=== PATIENT | female | born 1985 ===

== ENCOUNTER 2024-01-22 08:45 | Inpatient (IN) | payer OTHER ==
[~2024-01-22] VITALS: Ht 99.1 cm; Wt 86.6 kg
[2024-01-22 10:13] LABS: HEMATOCRIT 33.5 % (36.0-45.00); HEMOGLOBIN 10.9 g/dL (12.0-15.00); MEAN CELL VOLUME 74.2 fL (80.00-100.00); MEAN CORPUSCULAR HEMOGLOBIN 24.1 pg (27.00-32.0); MEAN CORPUSCULAR HGB CONC 32.6 g/dl (32.0-36.0); PLATELET COUNT 435 K/uL (150-450); RED BLOOD COUNT 4.52 M/uL (4.00-6.00); RED CELL DISTRIBUTION WIDTH 17.5 % (11.5-14.5)
[2024-01-22 10:35] LABS: INR 0.99; PARTIAL THROMBOPLASTIN TIME 25.6 SECONDS (22.0-34.0); PROTHROMBIN TIME 10.8 SECONDS (9.0-11.5)
[2024-01-22 10:46] VITALS: BP 136/80
[2024-01-22] MEDS ORDERED: METFORMIN HCL500 M3 PO (10:48)
[2024-01-22] MEDS ORDERED: TIROSINT25 MCG PO (10:48)
[2024-01-22] MEDS ORDERED: SIMVASTATIN (10:50)
[2024-01-22 11:27] LABS: ALBUMIN 3.4 gm/dL (3.4-5.0); BILIRUBIN TOTAL 0.25 mg/dL (0.3-1.2); CALCIUM 9.1 mg/dL (8.5-10.1); CREATININE SERUM 0.71 mg/dL (0.55-1.02); GFR 92.13; GLOBULINA 4.5 G/DL (2.4-3.5); POTASSIUM 4.5 mEq/L (3.5-5.1); TOTAL PROTEIN 7.9 gm/dL (6.4-8.2)
[2024-01-22 11:53] LABS: URINE APPEARANCE Turbid; URINE BILIRRUBIN Negative (NEGATIVE); URINE BLOOD Trace; URINE COLOR Yellow; URINE GLUCOSE Negative (NEGATIVE); URINE KETONE Trace (NEGATIVE); URINE LEUKOCYTE Large; URINE NITRATE Negative; URINE PROTEIN 30 (NEGATIVE); URINE UROBILINOGEN 0.2 E.U./dl
[2024-01-22 11:57] LABS: URINE CAST 1.83 uL (0.0-1.40); URINE EPITHELIAL CELLS 68.6 uL (0.0-38.8); URINE RBC 14.8 uL (0.0-20.8)
[2024-01-22 12:26] LABS: URINE BACTERIA > 9821.5 uL (0.0-1933)
[2024-01-27] MEDS ORDERED: CEFAZOLIN SODIUM 1,000 MG VIAL IV ONE (18:00)
[2024-01-27] MEDS ORDERED: POVIDONE-IODINE 118 ML BOTT TOP ONE (18:15)
[2024-01-27] MEDS ORDERED: MORPHINE SULFATE 4 MG/ML VIAL IV ONE ×2 (20:15→21:15)
[2024-01-27] MEDS ORDERED: PROMETHAZINE HCL 25 MG/ML AMPUL IV SCH (21:06)
[2024-01-27] MEDS ORDERED: MEPERIDINE HCL/PF 50 MG/ML VIAL IV SCH (21:06)
[2024-01-27 22:31] VITALS: BP 135/80
[2024-01-28] VITALS: BP 130/88
[2024-01-28] MEDS ORDERED: IBUprofen 800 MG TABLET PO SCH (02:00)
[2024-01-28 04:55] LABS: HEMATOCRIT 32.7 % (36.0-45.00); HEMOGLOBIN 10.3 g/dL (12.0-15.00); MEAN CELL VOLUME 74.3 fL (80.00-100.00); MEAN CORPUSCULAR HEMOGLOBIN 23.3 pg (27.00-32.0); MEAN CORPUSCULAR HGB CONC 31.3 g/dl (32.0-36.0); PLATELET COUNT 435 K/uL (150-450); RED BLOOD COUNT 4.41 M/uL (4.00-6.00); RED CELL DISTRIBUTION WIDTH 17.3 % (11.5-14.5)
[2024-01-28] MEDS ORDERED: GABAPENTIN 600 MG TABLET PO SCH (05:00)
[2024-01-28] MEDS ORDERED: SIMETHICONE 125 MG CAPSULE PO SCH (05:00)
[2024-01-28 08:53] VITALS: BP 123/70
[2024-01-28] MEDS ORDERED: GABAPENTIN 300 MG CAPSULE PO SCH (09:00)
[2024-01-28] MEDS ORDERED: DEXTROSE 50 % IN WATER 0.5 G/ML DISP.SYRIN IV PRN (15:00)
[2024-01-28] MEDS ORDERED: INSULIN LISPRO 1,000 UNIT/10 ML UNITS SUBCUTANEO PRN (15:00)
[2024-01-28 16:00] VITALS: BP 115/75
[2024-01-29 01:02] VITALS: BP 110/79
[2024-01-29] MEDS ORDERED: LEVOTHYROXINE SODIUM 25 MCG TABLET PO SCH (06:00)
[2024-01-29] MEDS ORDERED: IBUPROFEN800 MG PO (07:06)
[2024-01-29] MEDS ORDERED: POLY119PG PO (07:06)
[2024-01-29] MEDS ORDERED: GABAPENTIN300 MG PO (07:06)
[2024-01-29] MEDS ORDERED: SIMETHICONE125 M1 PO (07:06)
[2024-01-29 08:24] VITALS: BP 118/79
[2024-01-29] MEDS ORDERED: POLYETHYLENE GLYCOL 3350 17 GM BLIST.PACK PO SCH (09:00)
== END 2024-01-29 13:51 | disposition home or self-care (01) | DRG 743 ==
LOC: SURH 01-27 08:45 → OB/GYN 01-27 15:27 → O/R 01-27 15:27 → SURH 01-27 18:00 → OB/GYN 01-27 20:35
PROVIDERS: ADMIT Obstetrics & Gynecology; ATTEND Obstetrics & Gynecology
PROC: 0UT70ZZ Resection of Bilateral Fallopian Tubes, Open Approach (ICD-10-PCS; 2024-01-27)
PROC: 0UT20ZZ Resection of Bilateral Ovaries, Open Approach (ICD-10-PCS; 2024-01-27)
PROC: 0UT90ZZ Resection of Uterus, Open Approach (ICD-10-PCS; principal; 2024-01-27 18:00)
DX: D25.9 Leiomyoma of uterus, unspecified (principal); N93.9 Abnormal uterine and vaginal bleeding, unspecified; R10.2 Pelvic and perineal pain; N80.8 Other endometriosis; Z20.822 Contact with and (suspected) exposure to COVID-19